=== PATIENT | female | born 1955 | race Caucasian/White ===

== ENCOUNTER 2017-04-20 21:44 | Inpatient (IN) | payer MEDICAID, MEDICARE ==
[2017-04-20 22:31] LABS: Hematocrit 38 % (35-47); Hemoglobin 13.5 g/dl (12.0-16.0); Mean Corpuscular HGB Conc 35 g/dl (31-36); Mean Corpuscular Hemoglobin 33 pg (27-31); Mean Corpuscular Volume 93 fL (80-97); Mean Platelet Volume 8 um3 (7.4-10.4); Red Blood Count 4.11 10^6/ul (4.0-5.4); Red Cell Distribution Width 13 % (10.5-15); White Blood Count 4.4 10^3/ul (3.5-10.8)
[2017-04-20 22:42] LABS: ALT 20 U/L (7-52); AST 26 U/L (13-39); Albumin 4.5 g/dL (3.2-5.2); Alcohol 93 mg/dL (<10); Alkaline Phosphatase 41 U/L (34-104); Anion Gap 9 mmol/L (2-11); BUN/Creatinine Ratio 25.7 (8-20); Blood Urea Nitrogen 18 mg/dL (6-24); CO2 Carbon Dioxide 27 mmol/L (22-32); Calcium 9.2 mg/dL (8.6-10.3); Chloride 105 mmol/L (101-111); EGFR African American 110.1 (>60); EGFR Non-African American 85.6 (>60); Globulin 2.3 g/dL (2-4); Glucose 79 mg/dL (70-100); Potassium 4.2 mmol/L (3.5-5.0); Salicylate < 2.50 mg/dL (<30); Sodium 141 mmol/L (133-145); Total Protein 6.8 g/dL (6.4-8.9)
[2017-04-20 22:51] LABS: TSH (Thyroid Stimulating Horm) 5.26 mcIU/mL (0.34-5.60)
--- NOTE | 2017-04-20 22:59 | ED ---
Psychiatric Complaint - HPI Summary HPI Summary: 61 female presents to ED, voluntarily, with complaints of suicidal ideations that have been ongoing for the past month. Patient states these thoughts have been becoming more frequent. Denies homicidal ideations. States she has a plan but would not like to share. Has not attempted any self harm. Does have history of self harm, suicidal ideations and depression. Patient was not forthcoming with information. Denies drug use, admits to occasional alcohol use. No other complaints at this time. No PMHx other than anxiety. Takes Trazadone to help her sleep. Denies hallucinations and hearing voices. - History Of Current Complaint Chief Complaint: [facility] Time Seen by Provider: 04/20/17 21:54 Hx Obtained From: Patient ?: No Onset/Duration: Sudden Onset, Lasting Weeks, Worse Since Timing: Constant Severity Initially: Mild Severity Currently: Moderate Character: Depressed Aggravating Factor(s): Recent Stress Alleviating Factor(s): Nothing Associated Signs And Symptoms: Positive: Negative Related History: Positive For: Prior Psychiatric Issues Has Suicidal: Reports: Thoughts, With A Plan. Denies: Demonstrates Gesture, Has Prior Attempt(s) Has Homicidal: Denies: Thoughts, With A Plan - Allergies/Home Medications Allergies/Adverse Reactions: Allergies Allergy/AdvReac Type Severity Reaction Status Date / Time Penicillins [PCN] Allergy Unknown Verified 04/20/17 21:49 Reaction Details Home Medications: Home Medications traZODone TAB* [Desyrel TAB*] 75 mg PO BEDTIME 04/21/17 [History Confirmed 04/21] PMH/Surg Hx/FS Hx/Imm Hx Endocrine/Hematology History: Denies: Hx Diabetes Cardiovascular History: Denies: Hx Hypertension Respiratory History: Denies: Hx Asthma - Surgical History Surgery Procedure, Year, and Place: n/a - Immunization History Immunizations Up to Date: Yes Infectious Disease History: Denies: Traveled Outside the [place] in Last 30 Days - Family History Known Family History: Positive: None - Social History Lives: Alone Alcohol Use: Occasionally Substance Use Type: Reports: None Smoking Status (MU): Unknown if Ever Smoked Review of Systems Constitutional: Negative Cardiovascular: Negative Respiratory: Negative Gastrointestinal: Negative Musculoskeletal: Negative Positive: Depressed - suicidal ideations All Other Systems Reviewed And Are Negative: Yes Physical Exam Triage Information Reviewed: Yes Vital Signs On Initial Exam: Initial Vitals Temp Pulse Resp BP Pulse Ox 96.9 F 71 16 103/69 96 04/20/17 21:45 04/20/17 21:45 04/20/17 21:45 04/20/17 21:45 04/20/17 21:45 Vital Signs Reviewed: Yes Appearance: Positive: Well-Appearing - slleeping upon arrival, No Pain Distress , Well-Nourished Skin: Positive: Warm, Skin Color Reflects Adequate Perfusion, Dry. Negative: Cold, Numb, Cyanosis @, Pale, Erythema @ Head/Face: Positive: Normal Head/Face Inspection Eyes: Positive: Conjunctiva Clear ENT: Positive: Hearing grossly normal Neck: Positive: Supple, Nontender Respiratory/Lung Sounds: Positive: Clear to Auscultation, Breath Sounds Present. Negative: Rales, Rhonchi, Wheezes Cardiovascular: Positive: Normal, RRR, Pulses are Symmetrical in both Upper and Lower Extremities. Negative: Murmur, Rub Abdomen Description: Positive: Nontender, Soft Bowel Sounds: Positive: Present Musculoskeletal: Positive: Normal, Strength/ROM Intact Neurological: Positive: Normal, Sensory/Motor Intact, Alert, Oriented to Person Place, Time Psychiatric: Positive: Depressed - [place] Coma Scale Best Eye Response: 4 - Spontaneous Best Motor Response: 6 - Obeys Commands Best Verbal Response: 5 - Oriented Diagnostics - Vital Signs Vital Signs Temp Pulse Resp BP Pulse Ox 04/20/17 21:45 96.9 F 71 16 103/69 96 - Laboratory Lab Results: Lab Results 04/20/17 04/20/17 Range/Units 22:10 22:10 WBC 4.4 (3.5-10.8) 10^3/ul RBC 4.11 (4.0-5.4) 10^6/ul Hgb 13.5 (12.0-16.0) g/dl Hct 38 (35-47) % MCV 93 (80-97) fL MCH 33 H (27-31) pg MCHC 35 (31-36) g/dl RDW 13 (10.5-15) % Plt Count 261 (150-450) 10^3/ul MPV 8 (7.4-10.4) um3 Neut % (Auto) 64.4 (38-83) % Lymph % (Auto) 24.7 L (25-47) % [place] % (Auto) 8.1 (1-9) % Eos % (Auto) 1.7 (0-6) % Baso % (Auto) 1.1 (0-2) % Absolute Neuts (auto) 2.8 (1.5-7.7) 10^3/ul Absolute Lymphs (auto) 1.1 (1.0-4.8) 10^3/ul Absolute Monos (auto) 0.4 (0-0.8) 10^3/ul Absolute Eos (auto) 0.1 (0-0.6) 10^3/ul Absolute Basos (auto) 0.1 (0-0.2) 10^3/ul Absolute Nucleated RBC 0 10^3/ul Nucleated RBC % 0 Sodium 141 (133-145) mmol/L Potassium 4.2 (3.5-5.0) mmol/L Chloride 105 (101-111) mmol/L Carbon Dioxide 27 (22-32) mmol/L Anion Gap 9 (2-11) mmol/L BUN 18 (6-24) mg/dL Creatinine 0.70 (0.51-0.95) mg/dL Est GFR ( Amer) 110.1 (>60) Est GFR (Non-Af Amer) 85.6 (>60) BUN/Creatinine Ratio 25.7 H (8-20) Glucose 79 (70-100) mg/dL Calcium 9.2 (8.6-10.3) mg/dL Total Bilirubin 0.40 (0.2-1.0) mg/dL AST 26 (13-39) U/L ALT 20 (7-52) U/L Alkaline Phosphatase 41 (34-104) U/L Total Protein 6.8 (6.4-8.9) g/dL Albumin 4.5 (3.2-5.2) g/dL Globulin 2.3 (2-4) g/dL Albumin/Globulin Ratio 2.0 (1-3) TSH 5.26 (0.34-5.60) mcIU/mL Salicylates < 2.50 (<30) mg/dL Serum Alcohol 93 H (<10) mg/dL Result Diagrams: 04/20/17 22:10 04/20/17 22:10 Lab Statement: Any lab studies that have been ordered have been reviewed, and results considered in the medical decision making process. Course/Dx - Course Course Of Treatment: labs and urine obtained. drug screen obtained. unremarkable. not currently anxious, sleeping upon arrival and at end of exam. no concern for other medical etiology or issues at this time. patient was cleared for [facility]. Spoke with [facility] patient will be admitted by Dr Deluca. - Differential Dx/Clinical Impression Differential Diagnosis/HQI/PQRI: Positive: Depression, Suicide Attempt, Suicidal Ideation, Suicidal Gesture Provider Diagnosis: Suicidal ideation, Depression - Physician Notifications Discussed Care Of Patient With: [facility], Dr Davey, Dr Deluca - signed out at shift change pending [facility] dispo Time Discussed With Above Provider: 14:30 Instructed by Provider To: Admit As Inpatient Patient Is Medically Stable For: Psych Evaluation Discharge - Discharge Plan Condition: Stable Disposition: ADMITTED TO [facility] Referrals: Jefferson Baltazar [facility]ER [Primary Care Provider] -
[2017-04-20 23:32] LABS: Urine Bilirubin Negative (Negative); Urine Glucose Negative (Negative); Urine Nitrite Negative (Negative)
[2017-04-20 23:35] LABS: Acetaminophen < 15 mcg/mL
[2017-04-20 23:45] LABS: Benzodiazepine Urine Screen None Detected (None Detect)
[2017-04-21] MEDS ORDERED: Al Hydrox/Mg Hydrox/Simet LIQ* 30 ML UDC PO PRN (05:46)
[2017-04-21] MEDS ORDERED: Acetaminophen TAB* 325 MG PO PRN (05:46)
[2017-04-21] MEDS: Vitamin THERAPEUTIC TAB PO SCH (09:32)
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
[2017-04-21] MEDS: traZODone TAB* 50 MG TAB PO SCH (21:08)
[2017-04-22] MEDS: Vitamin THERAPEUTIC TAB PO SCH (09:17)
--- NOTE | 2017-04-22 11:33 | PN ---
MHU: Group Therapy Note - Service Type Service Type: [id number] Group Psychotherapy - Cognitive Behavioral Group Therapy ( CBT):Patient attended CBT programming this morning and presented with flat affect that did not vary with discussion. Although responsive to direct prompts to respond to questions, patient did not engage in spontaneous conversation.
--- NOTE | 2017-04-22 14:12 | PN ---
Subjective - Subjective Service Type: 81758 Hosp care 15 min low complexity Subjective: Mahsa remains depressed and suicidal. She complains about the noise and chaotic nature of the current unit milieu but would not feel safe with discharge. She's given some thought to my medication recommendations and is providing consent to start trials of lamotrigine and bupropion. Further education and support are granted and she appears to be grateful. Objective - Appearance Appearance: Thin Framed Dysmorphic Features: No Hygiene: Normal Grooming: Well Kept - Behavior Psychomotor Activities: Normal Exhibits Abnormal Movement: No - Attitude and Relatedness Attitude and Relatedness: Cooperative Eye Contact: Fair - Speech Quality: Unpressured Latencies: Normal Quantity: Appropriate - Mood Patient's Decription of Mood: "Sad" - Affect Observed Affect: Constricted Affect Consistent with: Dysphoria - Thought Process Patient's Thought Process: Coherent Thought Content: Yes Suicidal Planning, No Passive Wish, No Homicidal Ideation, No Paranoid Ideation - Sensorium Experiencing Hallucinations: No, Sensorium is Clear Type of Hallucinations: Visual: No, Auditory: No, Command: No - Level of Consciousness Level of Consciousness: Alert Orientation: Yes Intact, Yes Orientated to Time, Yes Orientated to Place, Yes Orientated to Person - Impulse Control Impulse Control: Tenuous - Insight and Judgement Insight and Judgement: Fair - Group Participation Particating in Group Activities: Yes - Medication Management Medication Management Adherence: Yes Assessment - Assessment Merits Inpatient Hospitalization: For Immediate Safety, For Stabilization Inpatient DSM-IV Dx: Bipolar DO Type II Clinical Impression: 61 y.o. , white female with a history of recurrent, episodic depressive illness and strong suspicion of prior hypomanic periods, self-referred to the ED seeking hospitalization for increasing depression and SI with thoughts of ODing on ASA. Plan - Plan Treatment Plan: Name: MAHSA THAKKAR Birthdate: 1955 [id number] Patient is depressed with prior episodes of likely hypomania. Will change diagnosis to bipolar II and start trials of bupropion XL 150mg PO qam and lamotrigine 25mg PO qday. Continue to treat in inpatient setting. Continued Medication Management: Start Medication Medications: Current Medications Acetaminophen (Tylenol Tab*) 650 mg PO Q4H PRN PRN Reason: PAIN or TEMP > 101 F Al Hydrox/Mg Hydrox/Simethicone (Maalox Plus*) 30 ml PO Q4H PRN PRN Reason: INDIGESTION Bupropion HCl (Wellbutrin Xl *) 150 mg PO DAILY [facility] PRN Reason: Protocol Lamotrigine (Lamictal Tab(*)) 25 mg PO DAILY [facility] Multivitamins (Theragran Tab*) 1 tab PO DAILY [facility] Last Admin: 04/22/17 09:17 Dose: 1 tab Trazodone HCl (Desyrel Tab*) 75 mg PO BEDTIME [facility] Last Admin: 04/21/17 21:08 Dose: 75 mg - Discharge Plan Discharge Plan: Inpatient Hospitalization
[2017-04-22] MEDS: lamoTRIgine TAB(*) 25 MG PO SCH (14:45)
[2017-04-22] MEDS: traZODone TAB* 50 MG TAB PO SCH (22:31)
[2017-04-23] MEDS: Vitamin THERAPEUTIC TAB PO SCH (08:43)
[2017-04-23] MEDS: BuPROPion XL* 150 MG TAB.XL PO SCH (08:43)
[2017-04-23] MEDS: lamoTRIgine TAB(*) 25 MG PO SCH (08:43)
--- NOTE | 2017-04-23 11:23 | PN ---
MHU: Group Therapy Note - Service Type Service Type: [id number] Group Psychotherapy - Cognitive Behavioral Group Therapy ( CBT):Patient was attentive and participatory in CBT programming this morning, and remained in good behavioral control. Patient expressed positive insights regarding relevant treatment interventions and goals.
--- NOTE | 2017-04-23 13:01 | PN ---
Subjective - Subjective Service Type: [id number] Hosp care 15 min low complexity Subjective: The patient has initiated treatment with bupropion XL and lamotrigine, both of which she seems to be tolerating well so far. She denies SI today and seems to be out of crisis. She's been calm, cooperative, attending groups and safe on all checks per staff. She is preferring that I not contact any of her children as she fears this hospitalization with only upset them. She expresses interest in discharge home within the next couple days. Objective - Appearance Appearance: Thin Framed Dysmorphic Features: No Hygiene: Normal Grooming: Fairly Well Kept - Behavior Psychomotor Activities: Normal Exhibits Abnormal Movement: No - Attitude and Relatedness Attitude and Relatedness: Cooperative Eye Contact: Fair - Speech Quality: Unpressured Latencies: Normal Quantity: Appropriate - Mood Patient's Decription of Mood: "Okay" - Affect Observed Affect: Fair Affect Consistent with: Euthymia - Thought Process Patient's Thought Process: Coherent Thought Content: No Passive Wish, No Suicidal Planning, No Homicidal Ideation, No Paranoid Ideation - Sensorium Experiencing Hallucinations: No, Sensorium is Clear Type of Hallucinations: Visual: No, Auditory: No, Command: No - Level of Consciousness Level of Consciousness: Alert Orientation: Yes Intact, Yes Orientated to Time, Yes Orientated to Place, Yes Orientated to Person - Impulse Control Impulse Control: Intact - Insight and Judgement Insight and Judgement: Good - Group Participation Particating in Group Activities: Yes - Medication Management Medication Management Adherence: Yes Assessment - Assessment Merits Inpatient Hospitalization: [facility] Improvements, Pending Safe DC Plan Inpatient DSM-IV Dx: Bipolar DO Type II Clinical Impression: 61 y.o. , white female with a history of recurrent, episodic depressive illness and strong suspicion of prior hypomanic periods, self-referred to the ED seeking hospitalization for increasing depression and SI with thoughts of ODing on ASA. Plan - Plan Treatment Plan: Name: TANVIR THAKKAR Birthdate: 1955 [id number] Patient is depressed with prior episodes of likely hypomania. Will change diagnosis to bipolar II and start trials of bupropion XL 150mg PO qam and lamotrigine 25mg PO qday. Will target d/c for tomorrow or (04/25). Continued Medication Management: Start Medication Medications: Current Medications Acetaminophen (Tylenol Tab*) 650 mg PO Q4H PRN PRN Reason: PAIN or TEMP > 101 F Al Hydrox/Mg Hydrox/Simethicone (Maalox Plus*) 30 ml PO Q4H PRN PRN Reason: INDIGESTION Bupropion HCl (Wellbutrin Xl *) 150 mg PO DAILY [facility] PRN Reason: Protocol Last Admin: 04/23/17 08:43 Dose: 150 mg Lamotrigine (Lamictal Tab(*)) 25 mg PO DAILY [facility] Last Admin: 04/23/17 08:43 Dose: 25 mg Multivitamins (Theragran Tab*) 1 tab PO DAILY [facility] Last Admin: 04/23/17 08:43 Dose: 1 tab Trazodone HCl (Desyrel Tab*) 75 mg PO BEDTIME [facility] Last Admin: 04/22/17 22:31 Dose: 75 mg - Discharge Plan Discharge Plan: Outpatient Follow Up Outpatient Program: [facility]
[2017-04-23] MEDS: traZODone TAB* 50 MG TAB PO SCH (21:55)
[2017-04-24] MEDS: BuPROPion XL* 150 MG TAB.XL PO SCH (08:29)
[2017-04-24] MEDS: Vitamin THERAPEUTIC TAB PO SCH (08:29)
[2017-04-24] MEDS: lamoTRIgine TAB(*) 25 MG PO SCH (08:29)
[2017-04-24 08:42] VITALS: BP 99/69
--- NOTE | 2017-04-24 11:26 | PN ---
MHU: Group Therapy Note - Service Type Service Type: [id number] Group Psychotherapy - Cognitive Behavioral Group Therapy ( CBT):Patient was attentive and participatory in CBT programming this morning, and remained in good behavioral control. Patient expressed positive insights regarding relevant treatment interventions and goals.
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
== END 2017-04-24 14:00 | disposition home or self-care (01) | DRG 885 ==
LOC: ED 21:44 → BSU 04-21 04:52
PROVIDERS: ADMIT Psychiatry & Neurology Psychiatry; ATTEND Psychiatry & Neurology Psychiatry
PROC: GZHZZZZ Group Psychotherapy (ICD-10-PCS; principal; 2017-04-22)
DX: F31.81 Bipolar II disorder (principal); R45.851 Suicidal ideations; F50.9 Eating disorder, unspecified; R40.2362 Coma scale, best motor response, obeys commands, at arrival to emergency department; R45.84 Anhedonia; R40.2142 Coma scale, eyes open, spontaneous, at arrival to emergency department; R40.2252 Coma scale, best verbal response, oriented, at arrival to emergency department; Z88.0 Allergy status to penicillin; Z72.89 Other problems related to lifestyle; Z91.5 Personal history of self-harm; Z81.8 Family history of other mental and behavioral disorders
CPT/HCPCS: 36415; 80053; 80307; 80320; 80329; 81003; 84443; 85025; 90853; 99222; 99231; 99238; A9270-GY; G0480

== ENCOUNTER 2017-12-26 08:39 | Day surgery (SDC) | payer SELFPAY ==
[~2017-12-26 08:39] MED LIST: Buffered Lidocaine 0.9% SYRIN* 5 ML/SYR SYRINGE INTRADERM ONE
[2017-12-26] MEDS ORDERED: Clindamycin 900 MG IVPREMIX(* 900 MG/50 ML SDV IV ONE (08:47)
[2017-12-26] MEDS ORDERED: Buffered Lidocaine 0.9% SYRIN* 5 ML/SYR SYRINGE ONE (08:48)
[2017-12-26] MEDS ORDERED: Bacitracin OINTMENT* 0.5% 0.5 oz TUBE ONE (10:14)
[2017-12-26] MEDS ORDERED: Lidocain 1% EPI 1:100,000 * 30 ML MDV ONE (10:15)
[2017-12-26] MEDS ORDERED: fentaNYL* 50 MCG/ML 2 ML VIAL (100 MCG VIAL) ONE ×2 (10:21→11:50)
[2017-12-26] MEDS ORDERED: Midazolam* 1 MG/ML 5 ML VIAL (5 MG) ONE ×2 (10:26→11:28)
[2017-12-26] MEDS ORDERED: Propofol* 10 MG/ML 20 ML BTL IV PUSH ONE (10:36)
[2017-12-26] MEDS ORDERED: oxyCODONE TAB* 5 MG TAB PO PRN (12:25)
[2017-12-26] MEDS ORDERED: Naloxone* 0.4 MG/ML 1 ML VIAL IV PRN (12:25)
[2017-12-26] MEDS ORDERED: Acetaminophen TAB* 325 MG PO PRN (12:25)
[2017-12-26 13:54] VITALS: BP 136/87
== END 2017-12-26 14:25 | disposition home or self-care (01) ==
LOC: OREAST 08:39
PROVIDERS: ATTEND Plastic Surgery
DX: Z41.1 Encounter for cosmetic surgery (principal); M19.90 Unspecified osteoarthritis, unspecified site
CPT/HCPCS: A9270-GY; J2250; J2704; J3010

== ENCOUNTER 2019-03-17 07:03 | Emergency (ER) | payer MEDICARE, OTHER ==
[2019-03-17 07:32] VITALS: BP 130/78
--- NOTE | 2019-03-17 07:52 | UC ---
Respiratory Complaint HPI - HPI Summary HPI Summary: cough / chest tightness x 6 days. 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 c/o chest tightness, cough / throat irritation severity is 6 out of 10, worse with deep inhalation, nothing makes it better cough is productive, yellow sputum no fever, + chills, no nasal congestion - History of Current Complaint Chief Complaint: UCRespiratory Stated Complaint: RESPIRATORY COMPLAINT Time Seen by Provider: 03/17/19 07:39 Hx Obtained From: Patient Hx Last Menstrual Period: n/a ?: No Onset/Duration: Gradual Onset, Lasting Days - 6, Still Present Timing: Constant Severity Initially: Moderate Severity Currently: Moderate Pain Intensity: 4 Character: Cough: Productive Aggravating Factors: Deep Breaths Alleviating Factors: Nothing Associated Signs And Symptoms: Positive: Dyspnea, Chills, URI, Nasal Congestion. Negative: Fever, Pleuritic Chest Pain, Wheezing, Hemoptysis, Dizziness, Calf Pain, Calf Swelling, Edema - Allergies/Home Medications Allergies/Adverse Reactions: Allergies Allergy/AdvReac Type Severity Reaction Status Date / Time Penicillins Allergy Intermediate Rash Verified 03/17/19 07:33 Home Medications: Home Medications Meloxicam [Mobic] 15 mg PO DAILY 03/17/19 [History Confirmed 03/17/19] amLODIPine TAB* [Norvasc 5 mg TAB*] 5 mg PO DAILY 03/17/19 [History Confirmed ] PMH/Surg Hx/FS Hx/Imm Hx Cardiovascular History: Hypertension - Surgical History Surgical History: Yes Surgery Procedure, Year, and Place: tonscilectomy at age [age]. Hysterectomy 2017. [place]. gallbladder removed fall 2016 [place]. carpal tunnel release bilat [place] [facility] [place] Family History Known Family History: Negative: Diabetes Family History: FHx of bipolar disorder - Social History Alcohol Use: Occasionally Alcohol Amount: one glass of wine per day with dinner Substance Use Type: None Smoking Status (MU): Never Smoked Tobacco Amount Used/How Often: has not smoked in more than one year Have You Smoked in the Last Year: No - has not used anything with nicotine > one year - Immunization History Most Recent Influenza Vaccination: 04/14/17 Most Recent Pneumonia Vaccination: never Review of Systems All Other Systems Reviewed And Are Negative: Yes Constitutional: Positive: Chills, Fatigue Skin: Positive: Negative Eyes: Positive: Negative ENT: Positive: Sore Throat Respiratory: Positive: Cough Cardiovascular: Positive: Negative Is Patient Immunocompromised?: No Physical Exam Triage Information Reviewed: Yes Appearance: Well-Appearing, No Pain Distress, Well-Nourished Vital Signs: Initial Vital Signs Temp 98.2 F 03/17/19 07:28 Pulse 72 03/17/19 07:28 Resp 16 03/17/19 07:28 BP 130/78 03/17/19 07:28 Pulse Ox 100 03/17/19 07:28 Vital Signs Reviewed: Yes Eye Exam: Normal Eyes: Positive: Conjunctiva Clear ENT: Positive: Normal ENT inspection, Hearing grossly normal, Pharynx normal Neck exam: Normal Neck: Positive: Supple, Nontender, No Lymphadenopathy Respiratory: Positive: Chest non-tender, Lungs clear, Normal breath sounds, No respiratory distress Cardiovascular: Positive: RRR, No Murmur, Pulses Normal Abdomen Description: Positive: Nontender, Soft Skin Exam: Normal Diagnostics - Radiology No standard instances Radiology Interpretation Completed By: Radiologist Summary of Radiographic Findings: chest xray report: IMPRESSION: HYPERINFLATION , CONSISTENT WITH COPD. NO ACTIVE CARDIOPULMONARY DISEASE. Respiratory Course/Dx - Differential Dx/Diagnosis Provider Diagnosis: Pneumonitis due to fumes and vapors Discharge - Sign-Out/Discharge Documenting (check all that apply): Patient Departure All imaging exams completed and their final reports reviewed: Yes - Discharge Plan Condition: Stable Disposition: HOME Prescriptions: Albuterol HFA INHALER* [Ventolin HFA Inhaler*] 2 puff INH Q6H #1 mdi Patient Education Materials: Pneumonitis (ED) Referrals: Andre ELIAS,Arpita Huynh [Primary Care Provider] - 7 Days - Billing Disposition and Condition Condition: STABLE Disposition: Home
== END 2019-03-17 08:19 | disposition home or self-care (01) ==
LOC: UCCORT 07:03
DX: T59.891A Toxic effect of other specified gases, fumes and vapors, accidental (unintentional), initial encounter (principal); J68.0 Bronchitis and pneumonitis due to chemicals, gases, fumes and vapors; Y92.9 Unspecified place or not applicable; I10 Essential (primary) hypertension
CPT/HCPCS: 71046; 99212; G0463